=== PATIENT | male | born 1950 | race African-American/Black ===

== ENCOUNTER 2019-10-06 20:46 | Emergency (ER) | payer OTHER ==
[~2019-10-06] VITALS: Ht 172.7 cm; Wt 106.6 kg
[2019-10-06 20:53] VITALS: Ht 172.7 cm; Wt 106.6 kg
[2019-10-06 21:52] LABS: BASOPHIL % 0.5 % (0-2)
[2019-10-06 21:54] LABS: PLATELET COUNT 105 x10^3mcL (130-400); RED CELL DISTRIBUTION WIDTH 17.7 % (11.5-14.5)
[2019-10-06 22:11] LABS: CALCIUM 8.3 mg/dL (8.5-10.1); CARBON DIOXIDE 27.3 mmol/L (21-32); CREATININE SERUM 1.4 mg/dL (0.7-1.3); POTASSIUM SERUM 3.8 mmol/L (3.5-5.1)
[2019-10-06 22:16] LABS: ALBUMIN 3.2 g/dL (3.4-5.0); BILIRUBIN TOTAL 0.82 mg/dL (0.20-1.00); TOTAL PROTEIN, SERUM 5.7 g/dL (6.4-8.2)
[2019-10-07 01:27] VITALS: BP 155/57
== END 2019-10-07 01:27 | disposition home or self-care (01) ==
LOC: ED 20:46
PROVIDERS: Student in an Organized Health Care Education/Training Program
DX: R22.41 Localized swelling, mass and lump, right lower limb (principal); M79.661 Pain in right lower leg; E11.9 Type 2 diabetes mellitus without complications
CPT/HCPCS: 36415; Q0092